=== PATIENT | female | born 2000 | race Caucasian/White ===

== ENCOUNTER 2019-11-23 21:12 | Emergency (ER) | payer OTHER ==
[~2019-11-23] VITALS: Ht 160 cm; Wt 68.2 kg
[2019-11-23 21:34] VITALS: BP 105/66
== END 2019-11-24 02:29 | disposition left against medical advice (07) ==
LOC: EMS 21:13
DX: O99.89 Other specified diseases and conditions complicating pregnancy, childbirth and the puerperium (principal); Z53.21 Procedure and treatment not carried out due to patient leaving prior to being seen by health care provider

== ENCOUNTER 2020-05-27 13:45 | Observation (INO) | payer OTHER ==
[2020-05-27] MEDS ORDERED: PREN-217 PO (14:34)
[2020-05-27] MEDS ORDERED: SERT50TA12 PO (14:34)
[2020-05-27 14:43] VITALS: BP 120/76
== END 2020-05-27 17:20 | disposition home or self-care (01) ==
LOC: 4S 13:45
PROVIDERS: ADMIT Obstetrics & Gynecology; ATTEND Obstetrics & Gynecology
DX: O62.9 Abnormality of forces of labor, unspecified (principal); Z3A.39 39 weeks gestation of pregnancy
CPT/HCPCS: 59025; 99219